=== PATIENT | female | born 1975 | race Two or more races ===

== ENCOUNTER 2021-03-04 13:44 | Outpatient (REF) | payer OTHER, SELFPAY ==
--- NOTE | ~2021-03-04 | MM_ITS ---
EXAMINATION: MM SCREENING DIGITAL BREAST TOMOSYNTHESIS, BILATERAL CLINICAL INFORMATION: Screening. Asymptomatic. The lifetime risk of breast cancer based on the Tyrer-Cuzick Model is 14%. COMPARISON: Mammography: 09/19/2019 (baseline) TECHNIQUE: Digital breast tomosynthesis is performed in both the craniocaudal and mediolateral oblique views along with computer-aided detection (CAD). Synthesized 2D images are generated from the tomosynthesis. FINDINGS: The breasts are heterogeneously dense, which may obscure small masses (ACR BI-RADS breast composition Category c). There are no significant masses, abnormal calcifications, or other abnormalities. Parenchymal pattern is similar to initial baseline exam. The accessory breast tissue upper right breast is stable. The axilla and skin contours are unremarkable. No significant changes. MM/MM tomosynthesis screening BI IMPRESSION: No mammographic evidence of malignancy. ASSESSMENT: BI-RADS 2: Benign RECOMMENDATION: Routine annual mammography screening. This patient's information was entered into a reminder system with a target due date for their next mammogram.
== END 2021-03-04 13:45 | disposition home or self-care (01) ==
LOC: HO.MAMMO 13:44
PROVIDERS: PCP Hospitalist; Visit Provider Hospitalist
DX: Z12.31 Encounter for screening mammogram for malignant neoplasm of breast (principal)
CPT/HCPCS: 77063; 77067

== ENCOUNTER → 2021-04-08 13:26 | Outpatient (BNVA) | payer OTHER, SELFPAY | PROVIDERS: PCP Hospitalist; Visit Provider Advanced Practice Midwife | DX: Z01.419 Encounter for gynecological examination (general) (routine) without abnormal findings (principal); Z32.02 Encounter for pregnancy test, result negative; R23.2 Flushing; F17.200 Nicotine dependence, unspecified, uncomplicated | CPT/HCPCS: 81025 ==

== ENCOUNTER 2024-12-30 09:58 | Outpatient (REF) | payer MEDICAID, SELFPAY ==
[2025-01-01 11:11] LABS: H Pylori Breath Test Positive (Negative)
== END 2024-12-30 09:59 | disposition home or self-care (01) ==
LOC: HO.LNP 09:58
PROVIDERS: PCP Physician Assistant; Visit Provider Physician Assistant
DX: R14.2 Eructation (principal); R11.2 Nausea with vomiting, unspecified; R19.7 Diarrhea, unspecified
CPT/HCPCS: 83013; 99212

== ENCOUNTER 2024-12-30 09:58 | Outpatient (AMB) | payer MEDICAID, SELFPAY ==
[2024-12-30 10:01] VITALS: BP 138/86; PULSE 70; TEMP 36.8; O2SAT 99; BMI 30.3
--- NOTE | 2024-12-30 10:01 | AM.OFFWIN_ITS ---
Intake Vital Signs 12/30/24 10:01 Height 5 ft 1 in Weight 160 lb 6 oz BMI 30.3 BP 138/86 Blood Pressure Location Lt brachial Position Sitting Pulse 70 Pulse Source Pulse Oximeter Temp 98.2 F Temp Source Oral Pulse Oximetry (%) 99 Oxygen Delivery Method Room Air Intake Visit Reasons: EP Vomiting, diarrhea 1 week Intake Note: Pt presents to the office today for c/o vomiting and diarrhea x1 month that comes and goes. Pt states within the past week it has gotten worse. Patient Tobacco Use Status: Current everyday Tobacco user Allergies Penicillins Allergy (Mild, Verified 12/30/24 10:01) HIVES penicillamine Allergy (Unknown, Verified 12/30/24 10:01) hives HPI HPI Comments History of Present Illness Details History of Present Illness - The patient is a 49-year-old female pr esenting with gastrointestinal symptoms including excessive burping, nausea, vomiting, and diarrhea. - Symptoms have been present intermitten tly for the past month or two, with increased frequency, 4 times, this week. - Nausea and vomiting occur following ep isodes of excessive burping, described as gross and nasty. - Diarrhea accompanies the vomiting, wit h no blood or black discoloration in the stool or vomit. - No fever is present, and symptoms are not linked to specific meals. - Pepto-Bismol has been tried without re lief, and symptoms persist. - No significant abdominal pain is repor nisa, but throat discomfort is noted due to frequent vomiting. - Had GB removed years ago. - Has not taken any PPI's in the last mo nth, eating, drank or chewed gum in the last few hours. Physical Exam General: Cooperative, healthy appearing, comfortable, no acute distress and well developed Orientation: Patient oriented x3 Limitations: No limitations Head: Normal to inspection Ears: Hearing grossly normal bilaterally Nose: Normal External nose present Face and sinus: Normal facial exam Eyes: Appearance normal, both eyes and all related structures Neck: Normal visual inspection and Yes full ROM Respiratory: Normal respiratory effort and able to speak in complete sentences. GI: soft, slight TTP epigastric area, negative Dodson's Skin: No rashes or lesions noted Neuro: Patient oriented x3 Extremities: Normal to inspection [facility] Medical History Smoking Surgical History History of appendectomy Hx of tubal ligation Family History Mother History of breast cancer, Onset Age: 76 Social History Alcohol intake: current Alcohol intake frequency: holidays/special occasions only Patient Tobacco Use Status: Current everyday Tobacco user Cigarettes Per Day: 5 Years Smoked: 25 Sexual orientation: Straight/Heterosexual Gender identity: Female Review of Systems Const All systems reviewed & are unremarkable except as noted in HPI and below Physical Exam Vital Signs: Last Vital Signs Temp 98.2 F 12/30/24 10:01 Pulse 70 12/30/24 10:01 BP 138/86 12/30/24 10:01 Pulse Ox 99 12/30/24 10:01 Oxygen Delivery Method Room Air 12/30/24 10:01 BMI result Body Mass Index 30.3 Assessment & Plan Assessment & Plan (1) Increased belching: Code(s): R14.2 - Eructation Plan: Plan - Perform H. pylori breath test to confirm infection. - Provide anti-nausea medication for symptom relief after testing. - Initiate omeprazole if H. pylori test is negative to manage GERD symptoms. - Start Triple antibiotic regimen if H. pylori test is positive. - Recommend follow-up with primary care physician if symptoms do not improve and H pylori is negative. Patient was informed and verbally consented to the use of an ambient scribe for clinic note documentation during this visit. (2) Nausea vomiting and diarrhea: Code(s): R11.2 - Nausea with vomiting, unspecified; R19.7 - Diarrhea, unspecified Plan: as above Orders: Orders H Pylori Breath Test Today R11.2 - Nausea with vomiting, unspecified, R14.2 - Eructation, R19.7 - Diarrhea, unspecified Medications: New ondansetron 4 mg PO Q8H PRN 10 tabs 0RF nausea and vomiting Coding Level of Care Code Est Pt Level 4 (30154) Diagnoses Increased belching R14.2 Nausea vomiting and diarrhea R11.2; R19.7
--- OUTSIDE RECORDS SUMMARY | 2024-12-30 11:00 | XMS_ITS | Clinical Summary ---
Author Organization [facility] Address [address] [place] [address] Care Team Providers Care City Planner Name Role Phone Javad Fajardo MD Primary Care Provider [phone] Surgical History Surgery Date Site/Laterality Comments APPENDECTOMY PROCEDURE: HISTORICAL APPENDECTOMY TUBAL LIGATION PROCEDURE: HISTORICAL TUBAL LIGATION FOOT SURGERY PROCEDURE: HISTORICAL FOOT SURGERY; COMMENT: right foot Medical History Medical History Date Comments Historical Medical DX 10/09/02 DX:Pap sme ar with high grade squamous intraepithelial lesion (HGSIL) Historical Medical DX 01/31/01 DX:Pap sme ar with atypical squamous cells of undetermined sign (ASC-US) Historical Medical DX 12/799 DX:Pap sme ar with low grade squamous intraepithelial lesion (LGSIL) Hepatitis B infection 09/10/97 DX:Hepatit is B infection Genital herpes in women 12/28/2012 DX:Genit al herpes in women Family History Medical History Relation Name Comments Breast cancer Neg Hx Colon cancer Neg Hx Ovarian cancer Neg Hx Relation Name Status Comments Father Alive healthy Mother Alive healthy Social History Tobacco Use Types Packs/Day Years Used Date Smoking Tobacco: Every Day Cigarettes Smokeless Tobacco: Never Alcohol Use Standard Drinks/Week Comments Yes 0 (1 standard drink = 0.6 oz pur e alcohol) Comments Unknown Sex and Gender Information Value Date Recorded Sex Assigned at Not on file Legal Sex Female 10:22 AM EST Gender Identity Not on file Sexual Orientation Not on file Obstetrics History Plan of Treatment Health Maintenance Due Date Last Done Comments Breast Cancer Screening 1975 Hepatitis B Vaccines (1 of 3 - 19+ 3-dose series) 12/18/1994 Pneumococcal Vaccine: Pediatrics (0 to 5 Years) and At-Risk Patients (6 to 64 Years) (1 of 2 - PCV) 12/18/1994 Cervical Cancer Screening: P ap Smear 12/18/1996 Colorectal Cancer Screening: Colonoscopy 06/14/2022 Depression Screening 06/14/2022 HIV Screening 06/14/2022 Hepatitis C Screening 06/14/2022 Social Influencers of Health Screening 06/14/2022 DTaP,Tdap,and Td Vaccines (4 - Td or Tdap) 12/13/2022 12/13/2012, 02/20/2006, 05/20/1993 COVID-19 Vaccine (2023-2 5 season) 2024 Influenza Vaccine (Season Ended) 2025 MMR Vaccines Completed 05/20/1993 HIB Vaccines Aged Out No longer eligi ble based on patient's age to complete this topic HPV Vaccines Aged Out No longer eligi ble based on patient's age to complete this topic Hepatitis A Vaccines Aged Out No long er eligible based on patient's age to complete this topic IPV Vaccines Aged Out No longer eligi ble based on patient's age to complete this topic Meningococcal ACWY Vaccine Aged Out N o longer eligible based on patient's age to complete this topic Meningococcal B Vaccine Aged Out No l onger eligible based on patient's age to complete this topic RSV Immunization Patients Under 20 months Aged Out No longer eligible b ased on patient's age to complete this topic Varicella Vaccines Aged Out No longer eligible based on patient's age to complete this topic Care Teams City Planner Relationship Specialty Start Date End Date Javad Fajardo MD [address] [place] [address] PCP - General Internal Medicine 12/11/12
== END 2024-12-30 10:49 | disposition home or self-care (01) ==
PROVIDERS: PCP Physician Assistant; Visit Provider Physician Assistant
DX: R14.2 Eructation (principal); R11.2 Nausea with vomiting, unspecified; R19.7 Diarrhea, unspecified

== ENCOUNTER 2025-04-25 13:28 | Outpatient (AMB) | payer OTHER, SELFPAY ==
[2025-04-25 13:32] VITALS: BP 168/90; PULSE 87; RESP 18; TEMP 36.3; O2SAT 99; BMI 31.5
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
== END 2025-04-25 14:32 | disposition home or self-care (01) ==
PROVIDERS: PCP Physician Assistant
DX: R11.2 Nausea with vomiting, unspecified (principal); R19.7 Diarrhea, unspecified; R12 Heartburn; R14.2 Eructation; R10.13 Epigastric pain

== ENCOUNTER 2025-05-16 14:36 | Outpatient (REF) | payer OTHER, SELFPAY ==
--- NOTE | ~2025-05-16 | MM_ITS ---
EXAMINATION: MM SCREENING DIGITAL BREAST TOMOSYNTHESIS, BILATERAL CLINICAL INFORMATION: Screening. Asymptomatic. COMPARISON: Mammography: Comparison is made with available priors TECHNIQUE: Digital breast mammography with tomosynthesis is performed in both the craniocaudal and mediolateral oblique views along with computer-aided detection (CAD). FINDINGS: The breasts are heterogeneously dense, which may obscure small masses. There are no significant masses, abnormal calcifications, or other abnormalities. MM/MM tomosynthesis screening BI IMPRESSION: No mammographic evidence of malignancy. ASSESSMENT: BI-RADS Category 1: Negative RECOMMENDATION: Routine annual mammography screening. 1 year F/U This examination should not preclude the clinical evaluation of a suspicious palpable abnormality. This patient's information was entered into a reminder system with a target due date for their next mammogram. Electronically signed by: Patricia Garcia DO 05/20/2025 12:06 PM FAMILIA
--- OUTSIDE RECORDS SUMMARY | 2025-05-16 15:08 | XMS_ITS | Clinical Summary ---
Author Organization [facility] Address [address] [place] [address] Phone Care Team Providers Care Aeronautics Teacher Name Role Phone Javad Fajardo MD Primary Care Provider [phone] Allergies Active Allergy Reactions Criticality Noted Date Comments Penicillins Hives 04/21/2025 Medications famotidine (PEPCID) 20 mg tablet Take 1 tablet (20 mg total) by mouth 2 (two) times a day for 15 days. 30 tablet 5 04/22/20 25 Discontinued famotidine (PEPCID) 20 mg tablet Take 1 tablet (20 mg total) by mouth 2 (two) times a day for 15 days. 30 tablet 5 04/22/20 25 Discontinued famotidine (PEPCID) 20 mg tablet Take 1 tablet (20 mg total) by mouth 2 (two) times a day for 15 days. 30 tablet 5 05/07/20 25 Active Problems No known active problems Encounters Date Type Department Care Team Description 04/21/2025 11:38 PM EDT - 04/22/2025 1:04 AM EDT Emergency [facility] Emergency [address] [place] [address] Moderate nausea and vomiting (Primary Dx) Discharge Disposition: Home or Self Care from Last 3 Months Surgical History Surgery Date Site/Laterality Comments APPENDECTOMY [...] Sexual Orientation Not on file Obstetrics History Last Filed Vital Signs Vital Sign Reading Time Taken Comments Blood Pressure 144/99 04/21/2025 10:31 PM EDT Pulse 85 04/21/2025 10:31 PM EDT Temperature 36.9 C (98.4 F) 04/21/2025 10:31 PM EDT Respiratory Rate 19 04/21/2025 10:31 PM EDT Oxygen Saturation 99% 04/21/2025 11:54 PM EDT Inhaled Oxygen Concentration - - Weight 72.6 kg (160 lb) 04/21/2025 10:31 PM EDT Height 154.9 cm (5' 1 ) 04/21/2025 10:31 PM EDT Body Mass Index 30.23 04/21/2025 10:31 PM EDT Plan of Treatment Health Maintenance Due Date Last Done Comments Breast Cancer Screening 1975 Colorectal Cancer Screening: Colonoscopy 1975 Hepatitis B Vaccines (1 of 3 - 19+ 3-dose series) 12/18/1994 Pneumococcal Vaccine: Pediatrics (0 to 5 Years) and At-Risk Patients (6 to 49 Years) (1 of 2 - PCV) 12/18/1994 Cervical Cancer Screening: P ap Smear 12/18/1996 DTaP,Tdap,and Td Vaccines (4 - Td or Tdap) 12/13/2022 12/13/2012, 02/20/2006, 05/20/1993 Depression Screening 07/17/2024 COVID-19 Vaccine (1 - 2023-2 5 season) 2025 Influenza Vaccine (#1) 2025 Cholesterol Screening (Lipid Panel) 04/22/2025 HIV Screening 04/22/2025 Hepatitis C Screening 04/22/2025 Social Influencers of Health Screening 04/22/2025 RSV Immunization Adult Patients (1 - 1-dose 75+ series) 12/18/2050 MMR Vaccines Completed 05/20/1993 HIB Vaccines Aged [...] on patient's age to complete this topic Procedures Procedure Name Priority Date/Time Associated Diagnosis Comments HCG, SERUM, QUALITATIVE STAT Add-on 04/21/2025 10:42 PM EDT CBC WITH AUTO DIFFERENTIAL STAT 04/21/2025 10:42 PM EDT LIPASE STAT 04/21/2025 10:42 PM EDT COMPREHENSIVE METABOLIC PANEL STAT 04/21/2025 10:42 PM EDT CBC AND DIFFERENTIAL STAT 04/21/2025 10:42 PM EDT from Last 3 Months Results * (ABNORMAL) CBC auto differential (04/21/2025 10:42 PM EDT) [facility] Signature WBC 10.6 4.8 - 10.8 K/[facility] LAB HEMETOLOGY METHOD 04/21/2025 11:11 PM EDT [facility] RBC 4.70 3.80 - 4.80 M/mcL LAB HEMETOLOGY METHOD 04/21/2025 11:11 PM [facility] LAB Hemoglobin 14.4 11.5 - 16.0 g/dL LAB HEMETOLOGY METHOD 04/21/2025 11:11 PM [facility] LAB Hematocrit 42.5 35.0 - 47.0 % LAB HEMETOLOGY METHOD 04/21/2025 11:11 PM [facility] LAB MCV 90.8 79.0 - 98.0 FL LAB HEMETOLOGY METHOD 04/21/2025 11:11 PM [facility] LAB MCH 30.8 27.0 - 32.0 pcg LAB HEMETOLOGY METHOD 04/21/2025 11:11 PM [facility] LAB MCHC 33.9 32.0 - 37.0 g/dL LAB HEMETOLOGY METHOD 04/21/2025 11:11 PM [facility] LAB RDW 12.6 11.0 - 15.0 % LAB HEMETOLOGY METHOD 04/21/2025 11:11 PM [facility] LAB Platelets 203 130 - 400 K/mcL LAB HEMETOLOGY METHOD 04/21/2025 11:11 PM [facility] LAB MPV 13.2(H) 7.0 - 11.0 FL LAB HEMETOLOGY METHOD 04/21/2025 11:11 PM [facility] LAB NRBC 0.0 <1.0 % LAB HEMETOLOGY METHOD 04/21/2025 11:11 PM [facility] LAB NRBC Absolute 0.00 <0.10 K/mcL LAB HEMETOLOGY METHOD 04/21/2025 11:11 PM [facility] Neutrophils Relative 68.2 % LAB HEMETOLOGY METHOD 04/21/2025 11:11 PM [facility] LAB Lymphocytes Relative 25.6 % LAB HEMETOLOGY METHOD 04/21/2025 11:11 PM [facility] Monocytes Relative 5.1 % LAB HEMETOLOGY METHOD 04/21/2025 11:11 PM [facility] Eosinophils Relative 0.5 % LAB HEMETOLOGY METHOD 04/21/2025 11:11 PM [facility] Basophils Relative 0.3 % LAB HEMETOLOGY METHOD 04/21/2025 11:11 PM [facility] Immature Granulocytes Relative 0.3 % LAB HEMETOLOGY METHOD 04/21/2025 11:11 PM [facility] LAB Neutrophils Absolute 7.26(H) 1.50 - 7.00 K/mcL LAB HEMETOLOGY METHOD 04/21/2025 11:11 PM [facility] LAB Lymphocytes Absolute 2.72 1.00 - 5.00 K/mcL LAB HEMETOLOGY METHOD 04/21/2025 11:11 PM [facility] LAB Monocytes Absolute 0.54 0.20 - 1.00 K/mcL LAB HEMETOLOGY METHOD 04/21/2025 11:11 PM [facility] LAB Eosinophils Absolute 0.05 0.00 - 0.50 K/mcL LAB HEMETOLOGY METHOD 04/21/2025 11:11 PM [facility] LAB Basophils Absolute 0.03 0.00 - 0.20 K/mcL LAB HEMETOLOGY METHOD 04/21/2025 11:11 PM [facility] LAB Immature Granulocytes Absolute 0.03 0.00 - 0.03 K/mcL LAB HEMETOLOGY METHOD 04/21/2025 11:11 PM [facility] Blood Venous blood specimen / Unknown Venipuncture / Unknown 04/21/2025 10:42 PM EDT 04/21/2025 10:52 PM EDT us Yessi Lowry MD LAB BLOOD ORDERABLES Final Res ult Performing Organization Address [facility]/ZIP Co de Phone Number [facility] [address] [place] [address], [place] [phone] * hCG, serum, qualitative (04/21/2025 10:42 PM EDT) [facility] hCG Qual Negative Negative 04/22/2025 12:23 AM EDT [facility] Blood Venous blood specimen / Unknown Venipuncture / Unknown 04/21/2025 10:42 PM EDT 04/21/2025 10:52 PM EDT Ellie MALIK LAB BLOOD ORDERABLES Fin al Result Performing Organization Address [facility] Co de Phone Number [facility] [address] [place] [address], [place] [phone] * Lipase (04/21/2025 10:42 PM EDT) [facility] Lipase 23 13 - 75 unit/L LAB CHEMISTRY METHOD 04/21/2025 11:17 PM EDT [facility] Blood Venous blood specimen / Unknown Venipuncture / Unknown 04/21/2025 10:42 PM EDT 04/21/2025 10:52 PM EDT Yessi Lowry MD LAB BLOOD ORDERABLES Final Res ult Performing Organization Address [facility]/ZIP Co de Phone Number [facility] [address] [place] [address], [place] [phone] * (ABNORMAL) Comprehensive metabolic panel (04/21/2025 10:42 PM EDT) [facility] Sodium 139 133 - 145 mmol/L LAB CHEMISTRY METHOD 04/21/2025 11:17 PM EDT [facility] Potassium 3.8 3.5 - 5.5 mmol/L LAB CHEMISTRY METHOD 04/21/2025 11:17 PM [facility] Chloride 108 96 - 110 mmol/L LAB CHEMISTRY METHOD 04/21/2025 11:17 PM [facility] CO2 25 21 - 32 mmol/L LAB CHEMISTRY METHOD 04/21/2025 11:17 PM [facility] LAB Anion Gap 6 3 - 11 LAB CHEMISTRY METHOD 04/21/2025 11:17 PM [facility] LAB Glucose 119(H) 70 - 100 mg/dL LAB CHEMISTRY METHOD 04/21/2025 11:17 PM [facility] BUN 12 5 - 25 mg/dL LAB CHEMISTRY METHOD 04/21/2025 11:17 PM [facility] LAB Creatinine 0.91 0.50 - 1.10 mg/dL LAB CHEMISTRY METHOD 04/21/2025 11:17 PM [facility] LAB eGFR 77 >=60 mL/min/1. 73m2 LAB CHEMISTRY METHOD 04/21/2025 11:17 PM [facility] LAB Comment:Calculation based on the Chronic Kidney Disease Epidemiology Collaboration (CKD-EPI) equation refit without adjustment for race. BUN/Creatinine Ratio 13.2 LAB CHEMISTRY METHOD 04/21/2025 11:17 PM [facility] Calcium 10.0 8.5 - 10.5 mg/dL LAB CHEMISTRY METHOD 04/21/2025 11:17 PM [facility] AST (SGOT) 17 10 - 42 unit/L LAB CHEMISTRY METHOD 04/21/2025 11:17 PM [facility] ALT (SGPT) 34 10 - 60 unit/L LAB CHEMISTRY METHOD 04/21/2025 11:17 PM [facility] LAB Alkaline Phosphatase 111 42 - 121 unit/L LAB CHEMISTRY METHOD 04/21/2025 11:17 PM [facility] Total Protein 8.2(H) 6.0 - 8.0 g/dL LAB CHEMISTRY METHOD 04/21/2025 11:17 PM EDT [facility] Albumin 4.6 3.2 - 5.0 g/dL LAB CHEMISTRY METHOD 04/21/2025 11:17 PM EDT [facility] Total Bilirubin 0.7 0.0 - 1.4 mg/dL LAB CHEMISTRY METHOD 04/21/2025 11:17 PM EDT [facility] Blood Venous blood specimen / Unknown Venipuncture / Unknown 04/21/2025 10:42 PM EDT 04/21/2025 10:52 PM EDT us Yessi Lowry MD LAB BLOOD ORDERABLES Final Res ult [facility] ([facility]) [facility] [address] [place] [address], from Last 3 Months Insurance * Guarantor: Lamberto Valentino Account Type Relation to Patient Date of Phone Billing Address Personal/Family Self 1975 [phone] (Work) [address] [place] [address] [facility] Care Teams Aeronautics Teacher Relationship Specialty Start Date End Date Javad Fajardo MD [address] [place] [id number] PCP - General Internal Medicine 12/11/12
== END 2025-05-16 14:37 | disposition home or self-care (01) ==
LOC: HO.MAMMO 14:36
PROVIDERS: PCP Physician Assistant
DX: Z12.31 Encounter for screening mammogram for malignant neoplasm of breast (principal)
CPT/HCPCS: 77063; 77067

== ENCOUNTER → 2025-05-16 15:00 | Outpatient (BNV) | payer OTHER, SELFPAY | PROVIDERS: PCP Physician Assistant; Visit Provider Internal Medicine | DX: Z12.31 Encounter for screening mammogram for malignant neoplasm of breast (principal) | CPT/HCPCS: 77063; 77067 ==

== ENCOUNTER 2025-06-16 16:31 | Outpatient (REF) | payer OTHER, SELFPAY ==
[2025-06-16 17:16] LABS: Hematocrit 39.2 % (37.0-47.0); Hemoglobin 13.4 g/dl (12.0-16.0); Imm Gran Abs Auto 0.02 X10*3/uL (0.00-0.03); Imm Gran Pct Auto 0.3 % (0.0-0.4); Lymphocytes Absolute Auto 2.3 X10*3/uL (1.2-4.9); MANUAL DIFF FLAG SCAN; Mean Corpuscular HGB Conc 34.2 g/dl (31.0-35.0); Mean Corpuscular Hemoglobin 31.0 pg (27.0-33.0); Mean Corpuscular Volume 90.7 fL (80.0-98.0); NRBC Abs Auto 0.000 X10*3/uL (0.0-0.012); NRBC Pct Auto 0.0 /100WBC (0.0-0.2); Platelet Count 177 X10*3/uL (160-400); Red Blood Count 4.32 X10*6/uL (4.20-5.50); SCAN SMEAR FLAG 1; White Blood Count 6.0 X10*3/uL (4.8-10.8)
[2025-06-16 17:17] LABS: PLT ABN DIST 1
[2025-06-16 17:47] LABS: Appearance Urine Clear; Glucose Urine UA Negative (Negative); PH 5.5 (5.0-9.0); Specific Gravity - Urine 1.020 (1.005-1.025)
--- OUTSIDE RECORDS SUMMARY | 2025-06-16 18:47 | XMS_ITS | Clinical Summary ---
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 Cabin Attendant Name Role Phone Javad Fajardo MD Primary Care Provider [phone] Allergies Active Allergy Reactions Criticality Noted Date Comments Penicillins Hives 04/21/2025 Medications No known medications Active Problems No known active problems Encounters Date Type Department Care Team Description 04/21/2025 11:38 PM EDT - 04/22/2025 1:04 AM EDT Emergency [facility] Emergency [address] [place] [address] Moderate nausea and vomiting (Primary [...] Depression Screening 07/17/2024 COVID-19 Vaccine (1 - 2024-2 6 season) 2025 Influenza Vaccine (#1) 2025 Cholesterol [...] CBC auto differential (04/21/2025 10:42 PM EDT) WBC 10.6 4.8 - 10.8 K/mcL LAB HEMETOLOGY METHOD 04/21/2025 11:11 PM EDT [facility] RBC 4.70 3.80 - 4.80 M/mcL LAB HEMETOLOGY METHOD 04/21/2025 11:11 PM EDT [facility] Hemoglobin 14.4 11.5 - 16.0 g/dL LAB HEMETOLOGY METHOD 04/21/2025 11:11 PM EDT [facility] Hematocrit 42.5 35.0 - 47.0 % LAB HEMETOLOGY METHOD 04/21/2025 11:11 PM EDT [facility] MCV 90.8 79.0 - 98.0 FL LAB HEMETOLOGY METHOD 04/21/2025 11:11 PM EDT [facility] MCH 30.8 27.0 - 32.0 pcg LAB HEMETOLOGY METHOD 04/21/2025 11:[address] [facility] MCHC 33.9 32.0 - 37.0 g/dL LAB HEMETOLOGY METHOD 04/21/2025 11:[address] [facility] RDW 12.6 11.0 - 15.0 % LAB HEMETOLOGY METHOD 04/21/2025 11:[address] [facility] Platelets 203 130 - 400 K/mcL LAB HEMETOLOGY METHOD 04/21/2025 11:[address] [facility] MPV 13.2(H) 7.0 - 11.0 FL LAB HEMETOLOGY METHOD 04/21/2025 11:[address] [facility] NRBC 0.0 <1.0 % LAB HEMETOLOGY METHOD 04/21/2025 11:[address] [facility] NRBC Absolute 0.00 <0.10 K/mcL LAB HEMETOLOGY METHOD 04/21/2025 11:[address] [facility] Neutrophils Relative 68.2 % LAB HEMETOLOGY METHOD 04/21/2025 11:[address] [facility] Lymphocytes Relative 25.6 % LAB HEMETOLOGY METHOD 04/21/2025 11:[address] [facility] Monocytes Relative 5.1 % LAB HEMETOLOGY METHOD 04/21/2025 11:[address] [facility] Eosinophils Relative 0.5 % LAB HEMETOLOGY METHOD 04/21/2025 11:[address] [facility] Basophils Relative 0.3 % LAB HEMETOLOGY METHOD 04/21/2025 11:[address] [facility] Immature Granulocytes Relative 0.3 % LAB HEMETOLOGY METHOD 04/21/2025 11:[address] [facility] Neutrophils Absolute 7.26(H) 1.50 - 7.00 K/mcL LAB HEMETOLOGY METHOD 04/21/2025 11:11 PM EDT [facility] Lymphocytes Absolute 2.72 1.00 - 5.00 K/mcL LAB HEMETOLOGY METHOD 04/21/2025 11:11 PM EDT [facility] Monocytes Absolute 0.54 0.20 - 1.00 K/mcL LAB HEMETOLOGY METHOD 04/21/2025 11:11 PM EDT [facility] Eosinophils Absolute 0.05 0.00 - 0.50 K/[facility] LAB HEMETOLOGY METHOD 04/21/2025 11:11 PM EDT [facility] Basophils Absolute 0.03 0.00 - 0.20 K/mcL LAB HEMETOLOGY METHOD 04/21/2025 11:11 PM EDT [facility] Immature Granulocytes Absolute 0.03 0.00 - 0.03 K/[facility] LAB HEMETOLOGY METHOD 04/21/2025 11:11 PM EDT [facility] Blood Venous blood specimen / Unknown Venipuncture / Unknown 04/21/2025 10:42 PM EDT 04/21/2025 10:52 PM EDT Yessi Lowry MD LAB BLOOD ORDERABLES Final Res ult [facility] [address] [place] [address], * hCG, serum, qualitative (04/21/2025 10:42 PM EDT) hCG Qual Negative Negative 04/22/2025 12:23 AM EDT [facility] Blood Venous blood specimen / Unknown Venipuncture / Unknown 04/21/2025 10:42 PM EDT 04/21/2025 10:52 PM EDT Ellie MALIK LAB BLOOD ORDERABLES Fin al Result Performing Organization Address City/[facility]/ZIP Co de Phone Number [facility] [address] [place] [address], [place] [phone] * Lipase (04/21/2025 10:42 PM EDT) Lipase 23 13 - 75 unit/L LAB CHEMISTRY METHOD 04/21/2025 11:17 PM EDT [facility] Blood Venous blood specimen / Unknown Venipuncture / Unknown 04/21/2025 10:42 PM EDT 04/21/2025 10:52 PM EDT Yessi Lowry MD LAB BLOOD ORDERABLES Final Res ult Performing Organization Address [facility]/ZIP Co de Phone Number [facility] [address] [place] [address], [place] [phone] * (ABNORMAL) Comprehensive metabolic panel (04/21/2025 10:42 PM EDT) Sodium 139 133 - 145 mmol/L LAB CHEMISTRY METHOD 04/21/2025 11:[address] [facility] Potassium 3.8 3.5 - 5.5 mmol/L LAB CHEMISTRY METHOD 04/21/2025 11:[address] [facility] Chloride 108 96 - 110 mmol/L LAB CHEMISTRY METHOD 04/21/2025 11:[address] [facility] CO2 25 21 - 32 mmol/L LAB CHEMISTRY METHOD 04/21/2025 11:[address] [facility] Anion Gap 6 3 - 11 LAB CHEMISTRY METHOD 04/21/2025 11:[address] [facility] Glucose 119(H) 70 - 100 mg/dL LAB CHEMISTRY METHOD 04/21/2025 11:[address] [facility] BUN 12 5 - 25 mg/dL LAB CHEMISTRY METHOD 04/21/2025 11:[address] [facility] Creatinine 0.91 0.50 - 1.10 mg/dL LAB CHEMISTRY METHOD 04/21/2025 11:[address] [facility] eGFR 77 >=60 mL/min/1. 73m2 LAB CHEMISTRY METHOD 04/21/2025 11:[address] [facility] Comment:Calculation based on the Chronic Kidney Disease Epidemiology Collaboration (CKD-EPI) equation refit without adjustment for race. BUN/Creatinine Ratio 13.2 LAB CHEMISTRY METHOD 04/21/2025 11:[address] [facility] Calcium 10.0 8.5 - 10.5 mg/dL LAB CHEMISTRY METHOD 04/21/2025 11:[address] [facility] AST (SGOT) 17 10 - 42 unit/L LAB CHEMISTRY METHOD 04/21/2025 11:[address] [facility] ALT (SGPT) 34 10 - 60 unit/L LAB CHEMISTRY METHOD 04/21/2025 11:[address] [facility] Alkaline Phosphatase 111 42 - 121 unit/L LAB CHEMISTRY METHOD 04/21/2025 11:[address] [facility] Total Protein 8.2(H) 6.0 - 8.0 g/dL LAB CHEMISTRY METHOD 04/21/2025 11:[address] [facility] Albumin 4.6 3.2 - 5.0 g/dL LAB CHEMISTRY METHOD 04/21/2025 11:[address] [facility] Total Bilirubin 0.7 0.0 - 1.4 mg/dL LAB CHEMISTRY METHOD 04/21/2025 11:[address] 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
[2025-06-16 20:03] LABS: Albumin Level 5.1 g/dL (3.5-5.0); Alkaline Phosphatase 111 U/L (39-117); Anion Gap 11 (12-20); Aspartate Amino Transferase 29 U/L (5-31); Blood Urea Nitrogen 12 mg/dL (9-16); Calcium 9.4 mg/dL (8.4-10.2); Carbon Dioxide 23 mmol/L (22-29); Chloride 109 mmol/L (96-108); Cholesterol 144 mg/dL (<200); Estimated Glomerular Filt Rate > 60; HDL Cholesterol 48 mg/dL (>40); Potassium 3.3 mmol/L (3.3-5.1); Sodium 140 mmol/L (135-145); Total Protein 7.7 g/dL (6.5-8.0); Triglycerides 81 mg/dL (<150)
[2025-06-16 20:25] LABS: Alanine Aminotransferase 31 U/L (0-31)
[2025-06-19 20:33] LABS: Transglutaminase Ab IgG <1.0 U/mL
== END 2025-06-16 16:32 | disposition home or self-care (01) ==
LOC: HO.LAB 16:31
PROVIDERS: PCP Physician Assistant
DX: Z00.00 Encounter for general adult medical examination without abnormal findings (principal); Z13.6 Encounter for screening for cardiovascular disorders; Z13.21 Encounter for screening for nutritional disorder; R14.2 Eructation; R12 Heartburn; R11.2 Nausea with vomiting, unspecified; R19.7 Diarrhea, unspecified
CPT/HCPCS: 36415; 80053; 80061; 81003; 82306; 84443; 85025; 85652; 86141; 86364

== ENCOUNTER 2025-06-20 10:17 | Outpatient (AMB) | payer OTHER, SELFPAY ==
--- NOTE | 2025-06-20 10:21 | MHC.PC.OV ---
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: No Accompanied by: Self / Same As Patient Allergies Penicillins Allergy (Mild, Verified 06/20/25 10:32) HIVES penicillamine Allergy (Unknown, Verified 06/20/25 10:32) hives Medication List - Last Reconciled 06/20/25 by DHIRAJ Brody famotidine 40 mg PO BEDTIME omeprazole 40 mg PO DAILY ondansetron 4 mg PO Q8H PRN Tobacco use date assessed: 04/25/25 Dental Screening Dental Screen Date: 06/20/25 Did you have a dental visit in the last 12 months?: Yes Did you have a dental problem in the last 6 months where you did not have access to dental care?: No Was dental information given to patient?: Patient has dentist HPI Annual exam - see comments HPI Details Annual physical Dentist: up to date Eye: up to date Snellen: Right: Left: Corrected vision: yes, glasses STI screening: Colonoscopy: awaiting for GI consultation [place] [facility] Flu:no COVID:x1, did not complete the full series Tdap: Received one two years ago Diet:Regular, reports that she should change her diet Exercise: no exercise The patient is a 49 year old female presenting for annual physical and review of labs. She has had recent high blood pressure readings, including at a dental visit and during this encounter. The patient has no prior history of hypertension or use of antihypertensive medications. For the past three years, she has been experiencing early-onset menopausal symptoms, including hot flashes. Her menses have been absent for almost a year. She reports intermittent stomach issues, with one episode occurring since her last visit but none recently. A referral was made to Gastroenterology for a colonoscopy to investigate these reactions, but she is still waiting for an appointment. She has never had a prior colonoscopy. A test for celiac disease was negative. 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 Her diet is unrestricted, including fried foods, and her weight is now over 160 pounds. She reports shortness of breath when climbing stairs and does not engage in regular exercise beyond normal walking. She received a tetanus shot about two years ago after being bitten by a dog. Regarding her immunization status, she recalls receiving only the first COVID-19 vaccine and did not complete the series. She denies ever being diagnosed with COVID-19. Her health maintenance includes a recent dental visit for a molar issue, an upcoming eye exam, and a pending appointment for a Pap smear. Health Maintenance The patient will continue to await her gastroenterology appointment for a colonoscopy. She has upcoming appointments scheduled for an eye exam and a Pap smear. Dietary recommendations were made to increase water intake and consume potassium-rich foods like bananas. The importance of incorporating exercise was also discussed. 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 - Diet: She reports eating regularly and consumes various foods, including fried items. - Exercise: Her activity is limited to normal walking, with no formal exercise routine. - Weight: She notes her weight is over 160 pounds. Results - Complete Blood Count (CBC): Normal. - Chemistry Panel: Potassium is on the lower side of normal. - Chloride is slightly high. - Kidney function and glucose are normal. - Liver enzymes are normal. - Albumin is slightly high. - Lipid Panel: Cholesterol and triglycerides are not bad. - Vitamin D: Level is on the lower side. - Thyroid Function Test: Normal. - Urinalysis: Normal. - Celiac Test: Negative for gluten sensitivity. 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 Sexual orientation: Straight/Heterosexual Gender identity: Female Cognitive needs: No Hearing needs: No Vision needs: Yes Questionnaire Thrive Questionnaire Date Thrive assessed: 06/20/25 I am a: Patient What is your living situation today?: I have a steady place to live Within the past 12 months, did the food you bought not last and you didn't have the money to get more?: Never true Within the past 12 months, did you worry whether your food would run out before you got money to buy more?: Never true Do you have trouble paying for medicines?: No Do you have trouble getting transportation to medical appointments?: No Do you have trouble paying your heating and electricity bill?: No Do you have trouble taking care of your child, family member or friend?: No Do you have trouble with day-to-day activities such as bathing, preparing meals, shopping, managing finances, etc.?: No Are you currently unemployed and looking for a job?: No Are you interested in more education?: No Please select the resources that you would like help with: None Currently or been in a relationship where the following occur: No concerns reported THRIVE Score: 0 Review of Systems Narrative Review of Systems - Constitutional: Reports hot flashes for approximately three years and recent weight gain. - HEENT: Reports tooth pain. - Respiratory: Reports dyspnea on exertion, specifically when climbing stairs. - Gastrointestinal: Reports one episode of stomach problems since the last visit. - Denies recent diarrhea. - Genitourinary/Reproductive: Reports amenorrhea for nearly one year. - Musculoskeletal: Reports frequent, constricting pain in the neck and shoulder area. Const Other (reports hot flashes) Denies headache(s) and Reports weight gain Eyes Denies loss of vision ENT Reports dental pain, Denies vertigo, Denies dizziness, Denies headache(s) and Denies sore throat Card Denies chest pain, Denies leg edema, Denies lightheadedness and Reports dyspnea on exertion Resp Denies cough, Denies hemoptysis, Reports dyspnea on exertion and Denies wheezing GI Reports abdominal pain (Epigastric, one episode since last visit), Reports belching, Denies melena, Denies constipation, Reports heartburn, Reports diarrhea, Reports nausea and Reports vomiting Reports abnormal menses (Amenorrhea), Denies urinary frequency, Denies dysuria and Denies urinary urgency Musc Denies arthralgias, Denies joint swelling, Denies numbness, Reports stiffness (Neck and shoulders) and Denies tingling Skin/Breast Denies lesions and Denies rash Neuro Denies Abnormal speech present, Denies behavioral changes, Denies vertigo, Denies dizziness, Denies headache(s), Denies loss of vision, Denies memory loss, Denies numbness and Denies tingling Psych Denies anxiety, Denies behavioral changes, Denies depression, Denies memory loss and Denies panic attacks Robinson/Lymph Denies easy bleeding and Denies easy bruising Aller/Immun Denies wheezing Physical exam (Primary Care) Vital Signs: Last Vital Signs Pulse 75 06/20/25 10:22 Resp 18 06/20/25 10:22 BP 182/102 H 06/20/25 10:22 Pulse Ox 99 06/20/25 10:22 Oxygen Delivery Method Room Air 06/20/25 10:22 BMI result Body Mass Index 31.4 Tobacco/Smoking Status: Tobacco use Status Tobacco use date assessed 04/25/25 06/20/25 10:31 Patient Tobacco Use Status Current everyday Tobacco 06/20/25 10:31 Tobacco use type Cigarette 06/20/25 10:31 e-Cigarette/Vaping Use Never Used 06/20/25 10:31 Thrive Assessment: Date of Thrive Assessment Date Thrive assessed 06/20/25 12 10:31 Currently or been in a relationship where the following occur: No concerns reported Narrative Physical Exam - Vitals: Blood pressure was 182/-- mmHg. Const General: healthy appearing, no acute distress, alert and awake Nutritional Appearance: well nourished Orientation/consciousness: oriented to person, oriented to place and oriented to time [facility] Ears: TM's normal bilaterally General nose exam: Normal nasal mucous membranes and turbinates present Eyes Conjunctivae: conjunctivae normal Sclerae: sclerae normal Pupils: Equal, round and reactive pupils present Neck Neck: Yes no lymphadenopathy and Yes no JVD Thyroid: Thyroid normal Carotids: no bruits Resp Effort & Inspection: normal respiratory effort and not tachypneic Auscultation: no crackles, no rales, no rhonchi and no wheezes Cardio Rate: regular rate Rhythm: regular rhythm Heart sounds: S1 normal heart sound present, S2 normal heart sound present, no murmurs and normal S1 and S2 GI Palpation (GI): Soft to palpation, nontender, no hepatomegaly and no splenomegaly Auscultation: normal bowel sounds General: Yes no CVA tenderness OB/external & speculum: Deferred OB/external & speculum exam Back/Spine/Pelvis Back: no CVA tenderness Cervical Spine: No Cervical spine tenderness Skin General skin exam: no rashes or lesions noted and dry skin Neuro General: oriented to person, oriented to place, oriented to time, no focal motor deficits and CN's II-XI intact bilaterally Cranial nerves: Yes Equal, round and reactive pupils present Speech: No Abnormal speech present Gait exam (Neuro): Normal gait present Motor exam (neuro): 5/5 motor strength present throughout and no tremor noted Deep tendon reflexes (DTR's): Right triceps reflex intensity grade: 2+, Left triceps reflex intensity grade: 2+, Rt Biceps (C5, C6): 2+, Left biceps reflex intensity grade: 2+, Right brachioradialis reflex intensity grade: 2+, Left brachioradialis reflex intensity grade: 2+, Right patellar reflex intensity grade: 2+ and Left patellar reflex intensity grade: 2+ Extrem Right upper extremity: full ROM Left upper extremity: full ROM Right lower extremity: full ROM; no edema Left lower extremity: full ROM; no edema Psych Mental Status: mental status grossly normal Speech and movement: Normal speech and movement present Affect: normal affect Attitude: cooperative Thought process: Normal thought process present Results Reviewed Results Reviewed: Laboratory Tests 06/16/25 06/16/25 16:50 Unknown WBC 6.0 RBC 4.32 Hgb 13.4 Hct 39.2 MCV 90.7 MCH 31.0 MCHC 34.2 RDW 12.7 Plt Count 177 Sodium 140 Potassium 3.3 Chloride 109 H Carbon Dioxide 23 Anion Gap 11 L BUN 12 Creatinine 0.71 Estim Creat Clear Calc Not Reportable Estimated GFR > 60 Fasting Glucose 82 Calcium 9.4 Total Bilirubin 0.5 AST 29 ALT 31 Alkaline Phosphatase 111 C-React Prot High Sens 1.6 Total Protein 7.7 Albumin 5.1 H Triglycerides 81 Cholesterol 144 LDL Cholesterol, Calc 80 HDL Cholesterol 48 25-OH Vitamin D Total 16.4 L TSH 3.56 Urine Color Yellow Urine Appearance Clear Urine pH 5.5 Ur Specific [place] 1.020 Urine Protein Negative Urine Glucose (UA) Negative Urine Ketones Negative Urine Blood Negative Urine Nitrite Negative Ur Leukocyte Esterase Negative Tiss Transglutamin IgG <1.0 Coding Level of Care Code Est Pt Prev Care 40-64y(16572) Diagnoses Annual physical exam Z00.00 Nausea vomiting and diarrhea R11.2; R19.7 Heartburn R12 Increased belching R14.2 Diarrhea, unspecified type R19.7 Diarrhea type: unspecified type Epigastric pain R10.13 Abdominal location: epigastric Elevated blood pressure reading without diagnosis of hypertension R03.0 Stiffness of joint, not elsewhere classified, shoulder region M25.619 Vitamin D deficiency E55.9 Time Spent (min) 38 Assessment & Plan Assessment & Plan (1) Annual physical exam: Code(s): Z00.00 - Encounter for general adult medical examination without abnormal findings Category: Medical Plan: Preventative guidelines and recent labs reviewed with patient. Awaiting GI consult for colonoscopy and has an upcoming appt with [facility] [place]. Only had one of the two series covid vaccines in the past; Tetanus about 2 years ago after being bit by a dog. (2) Nausea vomiting and diarrhea: Code(s): R11.2 - Nausea with vomiting, unspecified; R19.7 - Diarrhea, unspecified Category: Medical Plan: Episodic nausea and vomiting that clears has a 24 hours. Patient was evaluated at the emergency room at [facility] No acute findings and was started on famotidine for acid reflux. Reports having one epside since last visit that was not as severe as before. Pending GI consult. Continue ondansetron 4 mg q.8 hours p.r.n., omeprazole 40 mg daily and famotidine 40 mg at bedtime (3) Heartburn: Code(s): R12 - Heartburn Category: Medical Plan: Symptoms/episodes have decreased significantly, with only one episode since last visit Reinforced dietary restrictions Continue omeprazole 40 mg daily and famotidine 40 mg at bedtime. She was referred the GI on previous visit and is awaiting consultation. (4) Increased belching: Code(s): R14.2 - Eructation Category: Medical Plan: Symptoms/episodes have decreased significantly, with only one episode since last visit Reinforced dietary restrictions Continue omeprazole 40 mg daily and famotidine 40 mg at bedtime. She was referred the GI on previous visit and is awaiting consultation. (5) Diarrhea: Code(s): R19.7 - Diarrhea, unspecified Category: Medical Qualifiers: Diarrhea type: unspecified type Qualified Code(s): R19.7 - Diarrhea, unspecified Plan: Transglutaminase ab IgG negative. Discussed and encouraged FODMAP diet. Awaiting GI consultation. (6) Abdominal pain: Code(s): R10.9 - Unspecified abdominal pain Category: Medical Qualifiers: Abdominal location: epigastric Qualified Code(s): R10.13 - Epigastric pain Plan: Patient reports recurrent every month so far since started. Abdominal pain epigastric region, with heartburn, nausea then followed by vomiting and diarrhea. Reports the symptoms last for about 24 hours, then she is asymptomatic until they occur again. The patient was referred to Gastroenterology for further evaluation. (7) Elevated blood pressure reading without diagnosis of hypertension: Code(s): R03.0 - Elevated blood-pressure reading, without diagnosis of hypertension Category: Medical Plan: The patient presented with a significantly elevated blood pressure of 182 systolic, which is consistent with recent high readings noted at other locations. Given the persistent elevation and her lack of prior treatment, initiation of antihypertensive therapy is warranted. Amlodipine 5 mg daily will be started. The patient will monitor her blood pressure at home and follow up in four weeks for an in-person re-evaluation (8) Stiffness of joint, not elsewhere classified, shoulder region: Code(s): M25.619 - Stiffness of unspecified shoulder, not elsewhere classified Category: Medical Plan: The patient reports frequent constricting pain in her neck and shoulder area. This is assessed to be muscular in origin, likely related to posture from her sedentary job. A small prescription for a muscle relaxer (cyclobenzaprine 10 mg) will be provided for use at night as needed due to potential for drowsiness. The patient was advised to engage in regular movement and stretching (9) Vitamin D deficiency: Code(s): E55.9 - Vitamin D deficiency, unspecified Category: Medical Plan: Lab results indicate a low vitamin D level. A prescription for vitamin D will be sent, or if not covered by insurance, the patient is advised to take [id number] vitamin D 50 mcg. Plan Discussion Notes I discussed with the patient her recent lab results, which are overall reassuring. I noted the low vitamin D level and recommended supplementation, either via prescription or [id number]. The main concern at this visit is her significantly elevated blood pressure, which was 182 systolic. I explained the need to start a low-dose blood pressure medication, amlodipine 5 mg, to manage this. I also addressed her complaint of neck and shoulder pain, which appears to be muscular, and provided a prescription for a muscle relaxant to be used at night. We scheduled a follow-up appointment in four weeks to re-evaluate her blood pressure in person. I instructed her to monitor her blood pressure at home and to contact the office sooner if it does not improve or if she has any other concerning symptoms. Patient Instructions - Start taking amlodipine 5 mg once daily for your blood pressure. - Check your blood pressure at home and keep a log. - You may take the prescribed muscle relaxer at night as needed for neck and shoulder pain. - Start taking vitamin D 50 mcg daily. - Try to drink more water and eat foods with potassium, like bananas. - Continue to wait for the GI office to call you to schedule your colonoscopy. - Return for a follow-up visit in four weeks to check your blood pressure. - Call the office if your blood pressure does not come down or if you have any other concerns before your next appointment. Medications: New amlodipine 5 mg PO DAILY 30 tabs 3RF cyclobenzaprine 10 mg PO BEDTIME PRN 30 tabs 1RF muscle spasm cholecalciferol (vitamin D3) 50 mcg PO DAILY 90 caps 3RF
[2025-06-20 10:22] VITALS: BP 182/102; PULSE 75; RESP 18; O2SAT 99; BMI 31.4
== END 2025-06-20 11:05 | disposition home or self-care (01) ==
LOC: HO.HMCH 10:18
PROVIDERS: PCP Physician Assistant
DX: Z00.00 Encounter for general adult medical examination without abnormal findings (principal); R11.2 Nausea with vomiting, unspecified; R19.7 Diarrhea, unspecified; R12 Heartburn; R14.2 Eructation; R10.13 Epigastric pain; R03.0 Elevated blood-pressure reading, without diagnosis of hypertension; M25.619 Stiffness of unspecified shoulder, not elsewhere classified; E55.9 Vitamin D deficiency, unspecified